=== PATIENT | female | born 1960 | race Caucasian/White ===

== ENCOUNTER → 2018-10-08 | Outpatient (CLI) | payer OTHER ==
--- NOTE | 2018-10-08 14:38 | Diagnostic Imaging Report ---
PROCEDURE: CT abdomen and pelvis without contrast. TECHNIQUE: Multiple contiguous axial images were obtained through the abdomen and pelvis without the use of intravenous contrast. Auto Exposure Controls were utilized during the CT exam to meet ALARA standards for radiation dose reduction. INDICATION: Lower pelvic pain and back pain as well as nausea. COMPARISON: No prior studies are available for comparison. FINDINGS: The lung bases are clear. No discrete liver mass is identified. The gallbladder is surgically absent. No biliary duct dilatation is seen. The pancreas and spleen are unremarkable. No adrenal mass is seen. Tiny nonobstructing calculi at the upper pole left kidney are noted. No definite ureteral or bladder calculi are seen. There is no hydronephrosis. Aorta is non-aneurysmal. The small and large bowel loops are normal in caliber. There is diverticulosis of the sigmoid but no evidence of acute diverticulitis. There is no ascites. Bony structures are nonacute. IMPRESSION: 1. Nonobstructing left renal calculi. No definite ureteral calculi or hydronephrosis is seen. 2. No acute feature in the abdomen or pelvis is identified. Dictated by: Dictated on workstation # [id number]
== END ==
LOC: RAD 14:11
PROVIDERS: ATTEND Pediatrics
DX: N20.0 Calculus of kidney (principal); Z90.49 Acquired absence of other specified parts of digestive tract
CPT/HCPCS: 74176

== ENCOUNTER → 2019-12-26 | Outpatient (CLI) | payer SELFPAY ==
--- NOTE | 2019-12-26 11:06 | Diagnostic Imaging Report ---
EXAM: MRI THORACIC SPINE W/O CON INDICATION: Mid back pain radiating to front of the chest. COMPARISON: None. FINDINGS: Normal alignment. Vertebral body heights are preserved. There are Schmorl's nodes in the superior endplates of T7 and T9 with mild edema. Bone marrow signal is otherwise unremarkable. No spinal canal or neural foraminal narrowing. Intervertebral discs are well-preserved. No abnormal signal in the thoracic spinal cord. The visualized paravertebral soft tissues are unremarkable. IMPRESSION: Mild spondylotic changes in the thoracic spine. No neural impingement. No abnormal signal in the thoracic spinal cord. Dictated by: Dictated on workstation # [id number]
== END ==
LOC: RAD 10:15
PROVIDERS: ATTEND Family Medicine
DX: M47.814 Spondylosis without myelopathy or radiculopathy, thoracic region (principal)
CPT/HCPCS: 72146

== ENCOUNTER → 2020-03-31 | Outpatient (CLI) | payer OTHER ==
[~2020-03-31] MED LIST: CATHETER FLUSH 10 ML SYR IV PRN; HOLD METFORMIN - RECEIVED CONTRAST 20 ML VIAL IV SCH; IOHEXOL 350 MG/ML 100 ML (OMNIPAQUE 350) VIAL IV ONE; NS 100 ML (IVPB) BAG IV ONE
--- NOTE | 2020-03-31 14:26 | Diagnostic Imaging Report ---
EXAMINATION: CT Chest with intravenous contrast. TECHNIQUE: Multiple contiguous axial images were obtained through the chest after the uneventful administration of intravenous contrast. All CT scans use one or more of the following dose optimizing techniques: automated exposure control, MA and/or KvP adjustment based on a patient size and exam type, or iterative reconstruction. HISTORY: Intermittent shortness of breath and chest pain. COMPARISON: None available. FINDINGS: Thyroid: There is a 0.8 cm hypoenhancing lesion within the left lobe of the thyroid gland. Based on patient age and lesion size, no follow-up is indicated. Mediastinum: Heart size is normal without significant pericardial effusion. The aorta is normal in caliber. No suspicious lymphadenopathy. Lungs and airways: Bibasilar dependent atelectasis. No pleural effusion or pneumothorax. There is a 0.7 cm groundglass nodule within the subpleural right upper lobe (series 3 image 64). There is a groundglass nodule within the left upper lobe measuring 0.9 cm. The airways are normal. Upper abdomen: The subphrenic structures are normal. Musculoskeletal: Degenerative changes of the spine without suspicious osseous lesion or compression fracture. IMPRESSION: 1. No acute abnormality in the chest. 2. Bilateral groundglass pulmonary nodules measuring up to 0.9 cm. Recommend follow-up CT in 3 months. Dictated by: Dictated on workstation # [id number]
== END ==
LOC: RAD FS 12:52
PROVIDERS: ATTEND Family Medicine
DX: R91.8 Other nonspecific abnormal finding of lung field (principal)
CPT/HCPCS: 71260

== ENCOUNTER → 2020-07-21 | Outpatient (CLI) | payer OTHER ==
--- NOTE | 2020-07-21 13:54 | Diagnostic Imaging Report ---
PROCEDURE: CT chest with contrast only. TECHNIQUE: Multiple contiguous axial images were obtained through the chest after administration of intravenous contrast. Auto Exposure Controls were utilized during the CT exam to meet ALARA standards for radiation dose reduction. INDICATION: Bilateral pulmonary nodules. COMPARISON: 03/31/2020 There is mild background emphysema. Bilateral pulmonary nodules have a similar overall appearance. A 0.9 cm nodule in the left upper lobe at the level of aorticopulmonary window is stable. The groundglass density nodule in the periphery of the right upper lobe at the same level is unchanged. There is no evidence of new mass or infiltrate. No pathologically enlarged adenopathy is identified. There is no significant pleural or pericardial fluid. Heterogeneous solid-appearing nodule in the lower pole of the left lobe of the thyroid gland is again noted. IMPRESSION: Stable subcentimeter nodules in both lungs with no significant change in solid-appearing nodule in the lower pole of the left lobe of the thyroid gland. Follow-up CT imaging could be performed in 6 months to document ongoing stability. Dictated by: Dictated on workstation # [id number]
== END ==
LOC: RAD FS 12:42
PROVIDERS: ATTEND Family Medicine
DX: R91.8 Other nonspecific abnormal finding of lung field (principal)
CPT/HCPCS: 71260

== ENCOUNTER → 2021-10-06 | Outpatient (CLI) | payer SELFPAY ==
--- NOTE | 2021-10-06 11:26 | Diagnostic Imaging Report ---
INDICATION: Hyperlipidemia CT coronary calcium study performed with no IV contrast. Dose reduction protocol was used. Raw data images show normal caliber of the aorta. There is a minimal trace of pericardial fluid. There is no significant pleural fluid seen. Visualized portions of the lung ewing show no change in left upper lobe density compared to the prior CT of 07/21/2020. The entirety of the lung ewing are not included on the study. There are no significant coronary calcifications. Coronary calcium score was 0. IMPRESSION: No significant coronary artery calcifications, coronary calcium score was 0. A minimal trace of pericardial fluid was noted. Dictated by: Dictated on workstation # [id number]
== END ==
LOC: RAD FS 09:48
PROVIDERS: ATTEND Family Medicine
DX: E78.2 Mixed hyperlipidemia (principal)
CPT/HCPCS: 75571

== ENCOUNTER → 2021-11-04 | Outpatient (CLI) | payer SELFPAY ==
--- NOTE | 2021-11-04 13:20 | Diagnostic Imaging Report ---
Indication: Kidney stones. Time of Exam: 1:04 PM There is moderate stool in the right colon. There are surgical clips in the right upper quadrant. No definite radiopaque urinary tract calculi are seen. IMPRESSION: No definite radiopaque urinary tract calculi are identified. If this is of clinical concern, CT of the urinary tracts may be useful for further evaluation. Dictated by: Dictated on workstation # [id number]
== END ==
LOC: RAD FS 12:53
PROVIDERS: ATTEND Urology
DX: N20.0 Calculus of kidney (principal)
CPT/HCPCS: 74018

== ENCOUNTER 2022-08-24 05:28 | Outpatient (CLI) | payer SELFPAY ==
[~2022-08-24] VITALS: Ht 170.2 cm; Wt 66.5 kg
[2022-08-25] MEDS ORDERED: LACT1CAP74 PO (10:01)
[2022-08-25] MEDS ORDERED: OMEP20TA33 PO (10:01)
[2022-08-25] MEDS ORDERED: FOLI-74 PO (10:01)
[2022-08-25] MEDS ORDERED: AMIT50TA3 PO (10:01)
[2022-08-25] MEDS ORDERED: [UNRECOGNIZED DRUG - CODE] PO (10:01)
== END 2022-08-25 10:23 | disposition home or self-care (01) ==
LOC: PREOP 05:28
PROVIDERS: ATTEND Surgery
DX: Z01.818 Encounter for other preprocedural examination (principal)

== ENCOUNTER 2022-08-31 08:44 | Day surgery (SDC) | payer OTHER ==
[~2022-08-31] VITALS: Ht 170.2 cm; Wt 66.5 kg
[2022-08-31] VITALS (11 sets, daily range): BP systolic 90–146; BP diastolic 45–79
[~2022-08-31 08:44] MED LIST changes: +AMIT50TA3 PO; -CATHETER FLUSH 10 ML SYR IV PRN; +FOLI-74 PO; -HOLD METFORMIN - RECEIVED CONTRAST 20 ML VIAL IV SCH; -IOHEXOL 350 MG/ML 100 ML (OMNIPAQUE 350) VIAL IV ONE; +LACT1CAP74 PO; -NS 100 ML (IVPB) BAG IV ONE; +OMEP20TA33 PO; +[UNRECOGNIZED DRUG - CODE] PO
[2022-08-31] MEDS ORDERED: ceFAZolin INJECTION 2,000 MG in NS (IVPB) 50 ML IV ONE (09:15)
[2022-08-31] MEDS ORDERED: LACTATED RINGERS 1,000 ML IV PRN (09:15)
[2022-08-31] MEDS ORDERED: BUP/EPI 0.5% 1:200,000 (SENSORCAINE) 30 ML VIAL ONE (09:26)
[2022-08-31] MEDS ORDERED: ONDANSETRON 4 MG/2 ML (SDV) Z0FRAN ONE (10:09)
[2022-08-31] MEDS ORDERED: proPOfol 200 MG/20 ML (DIPRIVAN) VIAL IV ONE (10:09)
[2022-08-31] MEDS ORDERED: LIDOCAINE PF 2% 5 ML (XYLOCAINE) VIAL ONE (10:09)
[2022-08-31] MEDS ORDERED: fentaNYL INJ 100 MCG/2 ML AMP ONE (10:09)
[2022-08-31] MEDS ORDERED: MIDAZOLAM 2 MG/2 ML (VERSED) VIAL ONE (10:10)
--- NOTE | 2022-08-31 10:17 | Progress Note-Pre Operative ---
Pre-Operative Progress Note Date H&P Reviewed: Aug 31, 2022 Time H&P Reviewed: 10:16 History & Physical: H&P Reviewed, Patient Examed, No changes noted Pre-Operative Diagnosis: left labial cyst TERRY WALTER DO Aug 31, 2022 10:17
[2022-08-31] MEDS ORDERED: SEVOFLURANE (ULTANE) 15 ML INHAL SOLN ONE (10:49)
--- NOTE | 2022-08-31 10:54 | Progress Note-Post Operative ---
Post-Operative Progess Note Surgeon (s)/Hat Checker (s) Surgeon TERRY WALTER DO Hat Checker: na Pre-Operative Diagnosis left labial cyst Post-Operative Diagnosis same Procedure & Operative Findings Date of Procedure 08/31/22 Procedure Performed/Findings excision left labial cyst Anesthesia Type general Estimated Blood Loss Estimated blood loss (mL): minimal Specimens/Packing Specimens Removed left labial cyst TERRY WALTER DO Aug 31, 2022 10:54
--- NOTE | 2022-08-31 10:55 | Discharge Inst-Simple/Standard ---
Discharge Inst-Standard Patient Instructions/Follow Up Plan of Care/Instructions/FU: 2 weeks federico Activity as Tolerated: No Discharge Diet: Regular Diet Other Inst to Patient Follow up Appt: Make appointment for 2 week. Instructions: No lifting greater than 10 pounds. No strenuous activity. May shower in 24 hours, no tub bath or soaking. Use incentive spirometer at home as directed. No Smoking Skin/Wound Care: You have special glue over your incision that will fall off on it's own. Symptoms to Report: Appetite Changes, Extremity Discoloration, Numbness/Tingling, Swelling Increased, Bleeding Excessive, Eyesight Changes, Pain Increased, Urine Color Change, Constipation(Persistent), Fever over 101 degree F, Pain/Pressure in chest, Urinating Difficulty, Cough Up/Vomit Blood, Heart Beat Irreg/Pounding, Pain/Pressure in jaw, Vaginal Bleeding Increase, Cramps in feet or legs, Lightheadedness, Pain/Pressure in shoulder, Diarrhea(Persistent), Memory Changes Suddenly, Questions/Concerns, Weight gain consecutive days, Dizziness/Fainting, Nausea/Vomiting, Shortness of Breath, Weight gain over 2 pounds If questions or concerns contact your physician Or seek help at emergency department. TERRY WALTER DO Aug 31, 2022 10:55
--- NOTE | 2022-08-31 10:56 | Anesthesia-General Post-Op ---
General Patient Condition Mental Status/LOC: Same as Preop Cardiovascular: Satisfactory Nausea/Vomiting: Absent Respiratory: Satisfactory Pain: Controlled Complications: Absent Post Op Complications Complications None Follow Up Care/Instructions Patient Instructions None needed. Anesthesia/Patient Condition Patient Condition Patient is doing well, no complaints, stable vital signs, no apparent adverse anesthesia problems. No complications reported per nursing. JOAQUIN MORRISON CRNA Aug 31, 2022 10:56
--- NOTE | 2022-09-01 15:05 | OPERATIVE REPORT ---
DATE OF SERVICE: 08/31/2022 PREOPERATIVE DIAGNOSIS: Left labial cyst. POSTOPERATIVE DIAGNOSIS: Left labial cyst. PROCEDURE: Excision of left labial cyst 3.5 x 1.5 cm. SURGEON: Terry Angelo DO ANESTHESIA: General. ESTIMATED BLOOD LOSS: Minimal. COMPLICATIONS: None. INDICATIONS: The patient is a 62-year-old female with a left labial cyst. She understands risks and benefits of procedure and wishes to proceed. Consent was signed in chart. DESCRIPTION OF PROCEDURE: The patient was taken to the operating suite. She was prepped and draped in sterile fashion. Timeout was performed. Local anesthetic was infiltrated around the cyst. Elliptical incision measuring 3.5 x 1.5 cm was made. Skin and subcutaneous tissues were then excised using a #15 blade scalpel and also using cautery for hemostasis. Once removed, hemostasis was performed. The wound was irrigated. Skin was then closed using 3-0 Vicryl in a subcuticular fashion. The area was then washed and dried, and skin Affix was placed over the incision. The patient tolerated the procedure well without complications, taken to recovery room in stable condition. Job ID: [id number] DocumentID: [id number] Dictated Date: 09/01/2022 09:16:34 Notch Machine Operator Date: 09/01/2022 15:03:00 Dictated By: TERRY ANGELO DO
== END 2022-08-31 12:40 | disposition home or self-care (01) ==
LOC: SDC 08:44
PROVIDERS: ATTEND Surgery
DX: N90.7 Vulvar cyst (principal); F12.10 Cannabis abuse, uncomplicated
CPT/HCPCS: 87081